=== PATIENT | male | born 2000 | race Caucasian/White ===

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

== ENCOUNTER 2020-03-05 12:53 | Outpatient (RCR) | payer OTHER | END 2020-03-06 | LOC: M PT 12:53 | PROVIDERS: ATTEND Orthopaedic Surgery | DX: Z51.89 Encounter for other specified aftercare (principal); M47.892 Other spondylosis, cervical region; M54.2 Cervicalgia ==

== ENCOUNTER 2020-03-30 09:30 | Outpatient (RCR) | payer OTHER | END 2020-04-06 | LOC: M PT 09:30 | PROVIDERS: ATTEND Orthopaedic Surgery | DX: M47.892 Other spondylosis, cervical region (principal) ==